=== PATIENT | male | born 1970 | race Caucasian/White ===

== ENCOUNTER 2016-04-19 15:00 | Emergency (ER) | payer BC, MEDICARE ==
--- NOTE | 2016-04-19 16:02 | UC ---
Dental HPI - HPI Summary HPI Summary: Long history of dental caries with past history of dental abscess. Currently awaiting dental insurance and anticipates dental extractions and dentures. Increasing facial swelling and pain x 2 to 3 days, with addition of ibuprofen for control of pain. No pain with eye movement or diplopia. - History of Current Complaint Chief Complaint: UCDentalProblem Stated Complaint: SINUS/ORAL COMPLAINT Time Seen by Provider: 04/19/16 15:51 Hx Obtained From: Patient Onset/Duration: Gradual Onset, Lasting Days - 2-3 Severity: Moderate Pain Intensity: 10 Pain Scale Used: 0-10 Numeric Aggravating: Chewing Alleviating: Other (see comments) - on chronic narcotics for pain control - Allergies/Home Medications Allergies/Adverse Reactions: Allergies Allergy/AdvReac Type Severity Reaction Status Date / Time No Known Allergies Allergy Verified 04/19/16 15:38 Home Medications: Home Medications Gabapentin TAB(NF) [Neurontin 600 mg TAB(NF)] 600 mg PO BID 04/19/16 [History Confirmed 04/19/16] Ibuprofen [Ibuprofen 200 MG] 800 mg PO DAILY PRN 04/19/16 [History Confirmed 10/28] Lidocaine PATCH 5%* [Lidoderm 5% Patch*] 3 patch TRANSDERM DAILY 04/19/16 [ History Confirmed 04/19/16] Ranitidine HCl [Zantac] 150 mg PO DAILY 04/19/16 [History Confirmed 04/19/16] oxyCODONE SR TAB(*) [Oxycontin 20 mg (*)] 20 mg PO BID 04/19/16 [History Confirmed 04/19/16] PMH/Surg Hx/FS Hx/Imm Hx - Additional Past Medical History Additional PMH: Chronic pain from back surgeries/injuries - Surgical History Surgical History: Yes Surgery Procedure, Year, and Place: BACK SX X 2 - Family History Known Family History: Positive: Other - father accidental ; mother living and well, age 85 - Social History Occupation: Disabled Lives: With Family Alcohol Use: Rare Substance Use Type: Marijuana Smoking Status (MU): Current Every Day Smoker Type: Cigarettes Amount Used/How Often: 1/2 PPD Length of Time of Smoking/Using Tobacco: 25 YRS Have You Smoked in the Last Year: Yes Review of Systems Constitutional: Negative Skin: Negative Eyes: Negative ENT: Dental Pain Respiratory: Negative Cardiovascular: Negative Gastrointestinal: Negative Genitourinary: Negative Motor: Negative Neurovascular: Negative Musculoskeletal: Other: - chronic back pain Neurological: Negative Psychological: Negative All Other Systems Reviewed And Are Negative: Yes Physical Exam Triage Information Reviewed: Yes Appearance: Pain Distress - objectively mild to moderate., Obese Vital Signs: Initial Vital Signs Temp 98.2 F 04/19/16 15:31 Pulse 101 04/19/16 15:31 Resp 12 04/19/16 15:31 BP 153/101 04/19/16 15:31 Pulse Ox 98 04/19/16 15:31 Vital Signs Reviewed: Yes Eyes: Positive: Conjunctiva Clear, Other: - Full range of ocular movement without pain. ENT: Positive: Pharynx normal Dental: Positive: Gross Decay/Caries @ - both upper and lower dentition with extensive decay and fractures and broken teeth. Abscess forming along left upper gumline along , Other: - mild to moderate left cheek swelling.. Negative: Cervical Lymphadenopathy Neck: Positive: Supple, Nontender, No Lymphadenopathy Respiratory Exam: Normal Dental Complaint Course/Dx - Course Course Of Treatment: clindamycin due to evidence of abscess and extensive decay. - Differential Dx/Diagnosis Differential Diagnosis/Dx: Dental Abscess Provider Diagnoses: dental abscess 12-24 Discharge - Discharge Plan Condition: Stable Disposition: HOME Prescriptions: Clindamycin Cap(NF) [Cleocin 300 mg Cap(NF)] 300 mg PO Q6H #30 cap Patient Education Materials: Dental Abscess (ED) Additional Instructions: Ensure that you have dental assessment as soon as possible. If you develop a fever, eye pain or double vision, please proceed to the emergency room for assessment. Continue ibuprofen 800mg three times daily for pain control. Use a probiotic source such as yogurt to help to decrease the risk of diarrhea with this antibiotic
[2016-04-19 16:38] VITALS: BP 155/100
== END 2016-04-19 16:22 | disposition home or self-care (01) ==
LOC: UCCORT 15:00
DX: K04.7 Periapical abscess without sinus (principal); K02.9 Dental caries, unspecified; R03.0 Elevated blood-pressure reading, without diagnosis of hypertension; F12.90 Cannabis use, unspecified, uncomplicated; F17.210 Nicotine dependence, cigarettes, uncomplicated
CPT/HCPCS: 99202; G0463